=== PATIENT | male | born 1955 | race Caucasian/White ===

== ENCOUNTER 2017-03-28 08:15 | Outpatient (CLI) | payer BC ==
--- NOTE | 2017-03-28 09:14 | CT ---
CT OF LUMBAR SPINE: DATE: 03/28/17. COMPARISON: 07/03/16. HISTORY: Lumbar radiculopathy, chronic back pain, pain down the left lower extremity, multiple prior back surg eries. TECHNIQUE: Serial axial CT imaging obtained at 3 mm intervals from lower thoracic spine through mid sacrum witho ut contrast. Coronal and sagittal reformatted imaging obtained. FINDINGS: Evaluation for central canal and/or neural foraminal stenosis is limited on routine CT. There is scattered atherosclerotic calcification of the abdominal aorta, not well assessed on noncont rast-enhanced imaging. The kidneys demonstrate a stable lobulated peripheral contour, not well asses sed on this examination. There is stable bilateral sacroiliac joint degenerative change. Mild stable L2-3 retrolisthesis noted in the 4 mm range. Stable minimal retrolisthesis of L3-4 in th e 4 mm range. Stable minimal anterolisthesis of L4 on L5 in the 2-3 mm range. T12-L1: There is disk space narrowing, anterior osteophyte formation, and vacuum disk formation. Mi ld bilateral facet hypertrophic change present. No osseous cause of significant central canal or emily ral foraminal stenosis. L1-2: Small left foraminal disk protrusion suspected. Disk space narrowing and anterior osteophyte formation and vacuum disk noted. Mild facet hypertrophy bilaterally. No osseous cause of significan t central canal or neural foraminal stenosis. L2-3: Moderate bilateral facet hypertrophy. Disk space narrowing, anterior osteophyte formation, di sk-osteophyte complex, and vacuum disk formation noted. There is at least mild central canal stenosi s and bilateral neural foraminal stenosis, mild on the right and moderate on the left. L3-4: Severe bilateral facet hypertrophy. There is disk space narrowing with vacuum disk formation and posterior osteophyte. Severe left and moderate right neural foraminal stenosis suspected. There is at least moderate central canal stenosis as well. L4-5: Severe bilateral facet hypertrophy, right greater than left. There is disk space narrowing an d vacuum disk formation. Moderate/severe neural foraminal stenosis. There is a disk bulge present w ith possible central disk herniation. Severe underlying central canal stenosis suspected as well. L5-S1: Severe bilateral facet hypertrophy with associated probable severe bilateral neural foraminal stenosis. Mild central canal stenosis suspected on the basis of disk bulge. No acute osseous abnormality seen. L3, L4, and L5 laminectomy changes are noted. No worrisome lytic or blastic bone lesion is evident. IMPRESSION: Severe multilevel degenerative change within the lumbar spine with associated areas of central canal stenosis and neural foraminal stenosis as above. MRI would best assess the degree of underlying cent ral canal and/or neural foraminal stenosis if the patient is able. POS: [facility]
== END 2017-03-28 08:16 | disposition home or self-care (01) ==
LOC: TBSIIMAG 08:15
PROVIDERS: ATTEND Neurological Surgery
DX: M47.26 Other spondylosis with radiculopathy, lumbar region (principal); M48.061 Spinal stenosis, lumbar region without neurogenic claudication
CPT/HCPCS: 72131

== ENCOUNTER 2017-04-10 11:17 | Outpatient (CLI) | payer BC ==
[2017-04-10 12:13] LABS: Hematocrit 49.9 % (42.0-52.0); Mean Platelet Volume 7.6 fL (7.4-10.4); Red Blood Cell (RBC) Count 5.11 mill/uL (4.70-6.10); White Blood Cell (WBC) Count 6.8 thou/uL (4.8-10.8)
[2017-04-10 12:40] LABS: Anion Gap 11 mmol/L (10-20); BUN (Urea Nitrogen) 17 mg/dL (8.4-25.7); Calc. Creatinine Clearance 0 mL/min (70-130); Calcium 9.8 mg/dL (7.8-10.44); Carbon Dioxide 32 mmol/L (23-31); Chloride 102 mmol/L (98-107); Estimated GFR-MDRD 77
== END 2017-04-10 11:18 | disposition home or self-care (01) ==
LOC: LABBT 11:17
PROVIDERS: ATTEND Neurological Surgery
DX: Z01.818 Encounter for other preprocedural examination (principal); M54.16 Radiculopathy, lumbar region
CPT/HCPCS: 80048; 85027; 93005; 93010

== ENCOUNTER 2017-04-19 08:14 | Day surgery (SDC) | payer BC ==
[2017-04-10 11:30] VITALS: BMI 35.5
--- NOTE | 2017-04-19 05:51 | HP ---
HISTORY OF PRESENT ILLNESS: Mr. Clayton is known to us from prior evaluation of the lumbar spine w ho returns now with a new CT scan of his lumbar spine while struggling predominantly with the left L3 and components of the left L4 radiculopathy. The CT reveals foraminal and lateral recess stenosis a t the left L3-L4 that fits his symptoms well. He is here to discuss surgical options to move forward . PAST MEDICAL HISTORY: Significant for heart disease. MEDICATIONS: AndroGel, clonazepam, Crestor, Lyrica, Niaspan, aspirin. PAST SURGICAL HISTORY: Rotator cuffs 2 level fusion of the cervical spine and prior lumbar laminecto my x2. FAMILY HISTORY: Noncontributory. ALLERGIES: No known drug allergies. PHYSICAL EXAMINATION: Alert and oriented x3. Gait is normal. Lower extremity motor exams reveal eq ual strength bilaterally in lower extremities. ASSESSMENT: Lumbar radiculopathy. PLAN: Dr. Diez met with the patient, reviewed imaging and ultimately advocated for a left L3-L4 dec ompression with possible unilateral instrumentation and fusion. He explained to the patient the risk s, benefits, and alternatives to the procedure. The patient expressed understanding and would like t o move forward with surgery as discussed. I do believe the patient is mentally competent and capable of making medical decisions for himself and we will move forward with surgery as planned. Riaz Garcia PA-C, dictating for Celestino Diez MD.
[2017-04-19] MEDS ORDERED: CEFAZOLIN/Water 2 GM/20 ML SYRINGE ONE ×2 (09:00→16:26)
[2017-04-19] MEDS ORDERED: Bupivacaine/Epinephrine 0.25% 30 ML VIAL ONE (10:10)
[2017-04-19] MEDS ORDERED: Thrombin 5000 UNITS/5 ML VIAL ONE (10:10)
[2017-04-19] MEDS ORDERED: Fentanyl 250 MCG/5 ML VIAL ONE (11:04)
[2017-04-19] MEDS ORDERED: Phenylephrine 10 MG/NS 250 ML 250 ML ONE (11:31)
--- NOTE | 2017-04-19 13:21 | OP ---
DATE OF PROCEDURE: 04/19/2017 SURGEON: Celestino Diez M.D. MILLINER HELPER: Riaz Garcia PA-C INDICATION: Pain. DIAGNOSIS: Lumbar spondylosis with lumbar radiculopathy. PROCEDURES PERFORMED: Reoperation of left L3-L4 facetectomy, left L3-4 instrumented fusion, placemen t of allograft, placement of autograft. ANESTHESIA: General. TECHNIQUE: The patient was brought into the operating room and placed under general anesthesia. He was flipped from a supine to a prone position on the operating room table. A linear incision was tiago nned over the L3-L4 segment. After prepping and draping and after an appropriate operative pause, th e incision was created. The soft tissues were swept away from midline. Self-retaining retractors we re placed in the wound for optimal exposure. After confirming the appropriate level with C-arm fluor oscopy, we spent a substantial amount of time dissecting through scar to identify the bone defect at the L3-L4 segments. Due to increased operative time, procedural 22 code will be added to all element s of the surgical case. We then used a high-speed cutting drill bit as well as 2, 3 and 4 mm Kerriso ns to remove the facet joint at the L3-L4 segment on the left side. With the aide of C-arm fluorosco py, pedicle screws were then placed in both pedicles. An intraoperative 3D CT scan was then performe d to confirm appropriate placement of hardware. A fan was then placed across the screw heads and fin al tightened under a slight degree of distraction. Allograft and autograft material was then placed within the lateral confines of the instrumentation construct. The wound was irrigated. Hemostasis w as maintained throughout. The wound was then closed in anatomic layers and a pressure dressing was a pplied. There were no known procedural complications.
[2017-04-19] MEDS ORDERED: Ketorolac Tromethamine 30 MG/ML VIAL ONE (13:45)
[2017-04-19] MEDS ORDERED: Fentanyl 100 MCG/2 ML VIAL ONE ×2 (13:45→14:12)
[2017-04-19] MEDS ORDERED: Morphine 4 MG/ML VIAL ONE (14:49)
[2017-04-19] MEDS ORDERED: ePHEDrine/0.9% NaCl/PF SYRINGE 50 mg/10 ml ONE (16:19)
[2017-04-19] MEDS ORDERED: Ondansetron HCl/PF 4 MG/2 ML Vial ONE (16:19)
[2017-04-19] MEDS ORDERED: Glycopyrrolate 0.2 MG/ML 5 ML SYRINGE ONE (16:19)
[2017-04-19] MEDS ORDERED: Lidocaine 1% PF 5 ML VIAL ONE (16:19)
[2017-04-19] MEDS ORDERED: PHENYLEPHRINE-NS 100 MCG/ML 10 ML SYRINGE ONE (16:19)
[2017-04-19] MEDS ORDERED: Dexamethasone 20 MG/5 ML VIAL ONE (16:19)
[2017-04-19] MEDS ORDERED: Propofol 200 MG/20 ML VIAL ONE (16:19)
[2017-04-19] MEDS ORDERED: HYDROcodone/Acetaminophen 5/325 mg Tablet ONE (17:16)
== END 2017-04-19 18:14 | disposition home or self-care (01) ==
LOC: SDC 08:14
PROVIDERS: ATTEND Neurological Surgery
PROC: 0SG0071 Fusion of Lumbar Vertebral Joint with Autologous Tissue Substitute, Posterior Approach, Posterior Column, Open Approach (ICD-10-PCS; principal; 2017-04-19)
DX: M47.26 Other spondylosis with radiculopathy, lumbar region (principal); Z79.82 Long term (current) use of aspirin; Z79.899 Other long term (current) drug therapy; Z98.1 Arthrodesis status; Z95.818 Presence of other cardiac implants and grafts; Z90.89 Acquired absence of other organs; Z98.890 Other specified postprocedural states
CPT/HCPCS: 76001; 96374; C1713; C1768; J1100; J1885; J2001; J2270; J2405; J2704; J3010

== ENCOUNTER 2017-05-30 09:09 | Outpatient (CLI) | payer BC ==
--- NOTE | 2017-05-30 10:08 | RAD ---
LUMBAR SPINE TWO VIEWS: History: Follow up. Comparison: Lumbar spine CT, 03-28-17. FINDINGS: There is a left unilateral pedicle screw and fan fixation at L3-4. On the lateral radiograph there is superior endplate deformity of L3. This endplate deformity is similar to slightly worsened than on t he comparison CT from 03-28-17. Chronic appearing height loss of the L1-2 vertebral body. Laminectomy changes are present at L3 and L 4. L4-5 anterolisthesis is similar. Dense calcifications of the aorta. IMPRESSION: 1. No evidence for hardware failure at the left L4-5 unilateral transpedicular screw and fan fixation . 2. Relative to the prior CT examination the superior endplate height loss at L3 appears slightly prog ressed. 3. Anterolisthesis at L4 over L5 similar to the comparison CT examination. POS: [facility]
== END 2017-05-30 09:10 | disposition home or self-care (01) ==
LOC: TBSIIMAG 09:09
PROVIDERS: ATTEND Neurological Surgery
DX: M54.16 Radiculopathy, lumbar region (principal); M43.16 Spondylolisthesis, lumbar region; Z98.1 Arthrodesis status
CPT/HCPCS: 72100

== ENCOUNTER 2017-08-23 10:59 | Day surgery (SDC) | payer BC ==
[2017-08-22 11:49] VITALS: BMI 35.5
[2017-08-23] MEDS ORDERED: Fentanyl 100 MCG/2 ML VIAL ONE (12:39)
[2017-08-23] MEDS ORDERED: Midazolam HCl 2 mg/2 ml Vial ONE (12:39)
--- NOTE | 2017-08-23 14:24 | MRI ---
MRI CERVICAL SPINE NONCONTRAST: Indication: Right upper extremity and neck pain, chronic. Comparison: None. FINDINGS: There is multilevel anterior metallic fusion which spans C4 through C7 segments. Susceptibility artif act in this region does limit visualization. There is degenerative hypertrophy at the C1-2 level without a high degree of central canal stenosis. C2-3: No significant compromise of the central canal or neural foramen. C3-4: There is a broad based osteophyte with moderate central canal stenosis and ventral cord effacem ent. Moderate to severe right and moderate left neural foraminal narrowing present. There is associat ed cord flattening. C4-5: There is a right asymmetric osteophyte ridge with moderate narrowing of the right aspect of the thecal sac. There is also mild to moderate narrowing of the right neural foramen with crowding of th e C5 nerve root. No high grade left foraminal compromise. C5-6: There is ventral CSF effacement due to osteophyte ridge and mild narrowing of each neural imelda en. C6-7: There is left asymmetric osteophyte ridge with mild narrowing of the central canal. Mild ventra l cord effacement to the left of midline is seen. There is moderate narrowing of each neural foramen. C7-T1: Broad based osteophyte ridge with mild effacement of the ventral thecal sac. There is moderate biforaminal narrowing. Incidental note of disc bulges of the upper thoracic spine effacing the ventral aspect of the thoraci c spinal cord. Evaluation of the cervical spine cord reveals multifocal signal artifact from patient motion precludi ng reliable assessment. IMPRESSION: Multilevel anterior fusion throughout the cervical spine. There is moderate multilevel degenerative c hange throughout the cervical spine as outlined above. Findings are most pronounced at C3-4 where the re is central canal stenosis and cord effacement due to broad based osteophyte with a superimposed br oad based central zone disc protrusion. POS: [facility]
== END 2017-08-23 14:30 | disposition home or self-care (01) ==
LOC: SDC/OP 10:59 → EDSTATUS 13:00 → SDC/OP 14:30
PROVIDERS: ATTEND Specialist
DX: M54.12 Radiculopathy, cervical region (principal); Z98.1 Arthrodesis status; Z98.890 Other specified postprocedural states
CPT/HCPCS: 72141; J2250; J3010

== ENCOUNTER 2022-04-16 12:00 | Day surgery (SDC) | payer MEDICARE, BC ==
[2022-04-13 12:37] VITALS: BMI 32.1
[2022-04-16] MEDS ORDERED: fentaNYL PF 100 MCG/2 ML SYRINGE ONE (14:26)
[2022-04-16] MEDS ORDERED: HYDROmorphone 0.5 MG/0.5 ML SYRINGE ONE ×2 (14:26→14:27)
[2022-04-16] MEDS ORDERED: PROPOFOL 200 MG/20 ML VIAL ONE (14:30)
[2022-04-16] MEDS ORDERED: Ondansetron PF 4 MG/2 ML Vial ONE (14:30)
[2022-04-16] MEDS ORDERED: ePHEDrine 50 MG/ML VIAL ONE (14:30)
[2022-04-16] MEDS ORDERED: Dexamethasone 20 MG/5 ML VIAL ONE (14:30)
[2022-04-16] MEDS ORDERED: ePHEDrine 50 MG/ML VIAL IM SCH (16:15)
== END 2022-04-16 17:37 | disposition home or self-care (01) ==
LOC: MRI 12:00
PROVIDERS: ATTEND Internal Medicine
DX: M47.812 Spondylosis without myelopathy or radiculopathy, cervical region (principal); M50.21 Other cervical disc displacement, high cervical region; M48.02 Spinal stenosis, cervical region; Q76.49 Other congenital malformations of spine, not associated with scoliosis; I10 Essential (primary) hypertension; I48.91 Unspecified atrial fibrillation; I25.10 Atherosclerotic heart disease of native coronary artery without angina pectoris; Z79.01 Long term (current) use of anticoagulants; Z79.82 Long term (current) use of aspirin; Z79.85 Long-term (current) use of injectable non-insulin antidiabetic drugs; Z79.899 Other long term (current) drug therapy; Z95.5 Presence of coronary angioplasty implant and graft; Z98.1 Arthrodesis status
CPT/HCPCS: 72141; J1100; J1170; J2405; J2704; J3490; J7643

== ENCOUNTER 2022-05-25 08:58 | Outpatient (CLI) | payer MEDICARE, BC ==
[2022-05-25 10:02] LABS: Hemoglobin 13.9 g/dL (13.5-17.5); Mean Corpuscular HGB CONC 33.9 g/dL (32.0-36.0); Mean Corpuscular Hemoglobin 31.8 pg (27.0-33.0); Mean Corpuscular Volume 93.8 fl (81.2-95.1); Mean Platelet Volume 9.9 fl (7.4-10.4); Platelet Count 190 10x3/uL (150-450); RBC Distribution Width 12.6 % (11.5-14.5); Red Blood Cell (RBC) Count 4.37 10x6/uL (4.32-5.72); White Blood Cell (WBC) Count 6.5 10x3/uL (3.5-10.5)
[2022-05-25 10:21] LABS: Anion Gap 11 mmol/L (10-20); BUN (Urea Nitrogen) 15 mg/dL (8.4-25.7); Calc. Creatinine Clearance 0 mL/min (70-130); Carbon Dioxide 31 mmol/L (23-31); Chloride 106 mmol/L (98-107); Estimated GFR 91; Glucose 113 mg/dL (80-115); Potassium 4.4 mmol/L (3.5-5.1); Sodium 144 mmol/L (136-145)
== END 2022-05-25 08:59 | disposition home or self-care (01) ==
LOC: LABBT 08:58
PROVIDERS: ATTEND Neurological Surgery
DX: Z01.812 Encounter for preprocedural laboratory examination (principal); M50.20 Other cervical disc displacement, unspecified cervical region
CPT/HCPCS: 80048; 85027

== ENCOUNTER 2022-05-30 06:40 | Day surgery (SDC) | payer MEDICARE, BC ==
[2022-05-29 16:06] VITALS: BMI 32.1
[2022-05-30] MEDS ORDERED: Sodium Chloride 0.9% 100 ML ONE ×2 (07:46→12:36)
[2022-05-30] MEDS ORDERED: CEFAZOLIN 2 GM VIAL ONE ×2 (07:46→12:36)
[2022-05-30] MEDS ORDERED: Fentanyl 250 MCG/5 ML VIAL ONE (07:56)
[2022-05-30] MEDS ORDERED: Thrombin 5000 UNITS/5 ML VIAL ONE (08:03)
[2022-05-30] MEDS ORDERED: PROPOFOL 200 MG/20 ML VIAL ONE (08:13)
[2022-05-30] MEDS ORDERED: ePHEDrine 50 MG/ML VIAL ONE (08:13)
[2022-05-30] MEDS ORDERED: NEOSTIGMINE 3 MG/3 ML SYR 3 MG/3 ML SYRINGE ONE (08:13)
[2022-05-30] MEDS ORDERED: Rocuronium Bromide 10 MG/ML (10ML VIAL) ONE (08:13)
[2022-05-30] MEDS ORDERED: Glycopyrrolate 0.2 MG/ML 5 ML SYRINGE ONE (08:13)
[2022-05-30] MEDS ORDERED: Ondansetron PF 4 MG/2 ML Vial ONE ×2 (08:13→12:44)
[2022-05-30] MEDS ORDERED: PHENYLEPHRINE-NS 100 MCG/ML 10 ML SYRINGE ONE (08:13)
[2022-05-30] MEDS ORDERED: Dexamethasone 20 MG/5 ML VIAL ONE (08:13)
[2022-05-30] MEDS ORDERED: Lidocaine 1% PF 5 ML VIAL ONE (08:13)
[2022-05-30] MEDS ORDERED: Tamsulosin HCl 0.4 MG CAP ONE (10:46)
[2022-05-30] MEDS ORDERED: HYDROcodone/Acetaminophen 5/325 mg Tablet ONE (13:08)
[2022-05-30] MEDS ORDERED: Promethazine HCl 25 MG/ML VIAL ONE (14:03)
[2022-05-30] MEDS ORDERED: Cyclobenzaprine 10 MG TAB ONE (16:30)
== END 2022-05-30 18:49 | disposition home or self-care (01) ==
LOC: SDC 06:40
PROVIDERS: ATTEND Neurological Surgery
PROC: 0PJY0ZZ Inspection of Upper Bone, Open Approach (ICD-10-PCS; principal; 2022-05-30)
PROC: 0RG10A0 Fusion of Cervical Vertebral Joint with Interbody Fusion Device, Anterior Approach, Anterior Column, Open Approach (ICD-10-PCS; 2022-05-30)
DX: M48.02 Spinal stenosis, cervical region (principal); M47.12 Other spondylosis with myelopathy, cervical region; M50.01 Cervical disc disorder with myelopathy, high cervical region; E78.5 Hyperlipidemia, unspecified; G89.29 Other chronic pain; M19.90 Unspecified osteoarthritis, unspecified site; I51.9 Heart disease, unspecified; Z87.891 Personal history of nicotine dependence; Z79.01 Long term (current) use of anticoagulants; Z79.82 Long term (current) use of aspirin; Z79.85 Long-term (current) use of injectable non-insulin antidiabetic drugs; Z79.899 Other long term (current) drug therapy
CPT/HCPCS: C1713; C1889; J1100; J2405; J2550; J2704; J3010; J3490

== ENCOUNTER 2023-04-19 11:56 | Day surgery (SDC) | payer MEDICARE, BC ==
[2023-04-18 11:32] VITALS: BMI 32.5
[2023-04-19] MEDS ORDERED: ePHEDrine Sulfate 50 MG/10 ML VIAL ONE (14:30)
[2023-04-19] MEDS ORDERED: PROPOFOL 200 MG/20 ML VIAL ONE (14:30)
[2023-04-19] MEDS ORDERED: PHENYLEPHRINE-NS 100 MCG/ML 10 ML SYRINGE ONE (14:30)
[2023-04-19] MEDS ORDERED: Succinylcholine 200 MG/10 ml SYRINGE FS ONE (14:30)
[2023-04-19] MEDS ORDERED: Ondansetron PF 4 MG/2 ML Vial ONE (14:30)
== END 2023-04-19 17:18 | disposition home or self-care (01) ==
LOC: MRI 11:56
PROVIDERS: ATTEND Neurological Surgery
DX: M25.512 Pain in left shoulder (principal); G89.29 Other chronic pain; M19.90 Unspecified osteoarthritis, unspecified site; Z87.891 Personal history of nicotine dependence; Z79.891 Long term (current) use of opiate analgesic